=== PATIENT | male | born 1975 | race Caucasian/White ===

== ENCOUNTER 2021-03-16 16:36 | Emergency (ER) | payer SELFPAY ==
[2021-03-16 16:38] VITALS: BP 130/72; PULSE 113; RESP 15; TEMP 36.4; O2SAT 99; BMI 32.1
--- NOTE | 2021-03-16 17:13 | ED.VIS.DENTA ---
HPI History of Present Illness Chief Complaint: Dental Informant: patient Onset/Context/Timing Onset: Yesterday Context: Gradual Onset Current Severity: Moderate Maximum Severity: Severe Narrative Narrative: Patient presents with left lower dental pain that flared up again yesterday. He states was having problems a year ago and was post to have his tooth pulled, but lost his insurance and had to cancel that appointment. In the past he has done well with penicillin. Yesterday he developed increased pain again. Today it radiates into the jaw and neck. 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 Right femoral fracture Home Medications NK 03/16/21 [History Last Taken Unknown] ibuprofen 800 mg PO Q8H PRN #20 tab 03/16/21 [Rx Last Taken Unknown] penicillin V potassium 500 mg PO 4X/DAY #40 tab 03/16/21 [Rx Last Taken Unknown] Allergy/AdvReac Type Severity Reaction Status Date / Time No Known Allergies Allergy Verified 03/16/21 16:36 Social History Smoking Status: Current every day smoker tobacco type: cigarettes ROS ROS ED Constitutional Constitutional ED: Denies chills or fever(s) Eyes Eyes: Denies change in vision ENT ENT ED: Reports other Details: Left lower dental pain ; Denies sore throat Cardiovascular Cardiovascular: Denies chest pain Respiratory/Chest Respiratory/Chest: Denies cough or dyspnea Gastrointestinal Gastrointestinal: Denies abdominal pain, diarrhea, nausea or vomiting Genitourinary Genitourinary ED: Denies dysuria Musculoskeletal Musculoskeletal: Denies back pain Integumentary Denies rash Neurologic Neurologic: Denies headache(s) or weakness Psychiatric Psychiatric: Denies anxiety or depression Endocrine Endocrinology: Denies polydipsia or polyuria Allergic/Immunologic Allergic/Immunologic ED: Denies urticaria EXAM Physical Exam Const Vital Signs: 03/16/21 16:38 Temperature 97.5 F L Temperature Source Temporal Pulse Rate 113 H Respiratory Rate 15 Blood Pressure 130/72 H Blood Pressure Mean 91 Pulse Ox 99 Oxygen Delivery Method Room Air Positive well nourished and well developed General Appearance ED: well developed HEENT Reports normocephalic and head/scalp atraumatic HEENT Narrative: No facial edema or erythema. Intraoral examination reveals left mandibular wisdom tooth to be fractured with mild surrounding gum edema. No posterior pharyngeal edema. Uvula midline. Patient tolerating secretions well and has a strong voice. There is no evidence of Lissa's angina. Eyes PERRL and EOMs intact bilaterally Neck supple Chest Wall inspection of chest normal and palpation of chest normal Resp normal respiratory effort and clear to auscultation bilaterally Cardio regular rate and regular rhythm Extremity normal to inspection Neuro oriented x3 and no sensory deficits noted Sensorium / Orientation: alert Motor Exam: strength 5/5 throughout Psych mental status grossly normal Skin no rashes or lesions noted [facility] Treatment and Re-Evaluation Comments:: Patient be treated with a course of penicillin and ibuprofen. He is given a dental referral list. Discharge Plan Triage Chief Complaint: Dental ED Provider: Josefina Garcia Dx/Rx/DC Orders Clinical Impression: Odontalgia Instructions: ED Dental Pain Prescriptions: New ibuprofen 800 mg tablet 800 mg PO Q8H PRN (Reason: pain) Qty: 20 RF: 0 penicillin V potassium 500 mg tablet 500 mg PO 4X/DAY Qty: 40 RF: 0 No Action NK RF: 0 Primary Care Provider: Care Physician,No Primary Referrals: Care Physician,No Primary [Primary Care Provider] - Activity Restrictions/Additional Instructions: Dental list provided Disposition Disposition: Home, self care
[2021-03-16] MEDS: Penicillin Vk 250 MG Tablet 500 MG PO (17:24)
== END 2021-03-16 17:27 | disposition home or self-care (01) ==
PROVIDERS: Emergency Provider Emergency Medicine
DX: K08.89 Other specified disorders of teeth and supporting structures (principal); F17.210 Nicotine dependence, cigarettes, uncomplicated; Z96.649 Presence of unspecified artificial hip joint
CPT/HCPCS: 99283